=== PATIENT | female | born 1965 | race Caucasian/White ===

== ENCOUNTER 2016-06-22 09:02 | Observation (INO) | payer BC ==
[~2016-06-22] VITALS: Ht 154.9 cm; Wt 56.7 kg
[2016-06-22] VITALS (13 sets, daily range): BP systolic 105–122; BP diastolic 57–68
[~2016-06-22 09:02] MED LIST: ASCO500T2 PO; DULO60CA6 PO; FERR325T72 PO; IV NORMAL SALINE 1000ML BAG 1,000 ML IV SCH; MULT-246 PO; NAPR500T8 PO; [UNRECOGNIZED DRUG - OTHER] IM
[2016-06-22] MEDS ORDERED: SCOPOLAMINE 1.5MG PATCH. TD ONE (09:15)
[2016-06-22] MEDS ORDERED: DEXAMETHASONE SOD PHOS 20 MG/5 ML VIAL. IV ONE (09:30)
[2016-06-22] MEDS ORDERED: DIPHENHYDRAMINE 50 MG/ML VIAL IVP ONE (09:30)
[2016-06-22] MEDS ORDERED: HYDROMORPHONE 2 MG/ML VIAL. IV ONE ×2 (09:30→12:30)
[2016-06-22 09:40] LABS: HEMATOCRIT 28.9 % (36.0-47.0); HEMOGLOBIN 9.2 g/dL (12.0-15.5); RED BLOOD COUNT 4.24 x10^6/uL (3.50-5.40); RED CELL DISTRIBUTION WIDTH 15.9 % (11.5-14.5); WHITE BLOOD COUNT 6.3 x10^3/uL (4.0-11.0)
[2016-06-22 09:50] LABS: CREATININE 0.6 mg/dL (0.6-1.0); GFR 106.7
[2016-06-22 09:52] LABS: NEG OBC SER NEG; POS OBC SER POS
[2016-06-22 09:58] LABS: INR 1.2 (0.8-1.1); PROTHROMBIN TIME PATIENT 14.1 SEC (11.7-14.0)
[2016-06-22] MEDS ORDERED: LIDOCAINE 1% / SOD BICARB 8.4% 20 ML VIAL. IJ ONE ×2 (10:20→12:00)
[2016-06-22] MEDS ORDERED: IODIXANOL 320 MG/ML 100 ML VIAL. ONE (10:20)
[2016-06-22] MEDS ORDERED: IODIXANOL 320MG/ML 50ML VIAL. ONE (10:28)
[2016-06-22] MEDS ORDERED: KETOROLAC TROMETHAMINE 60 MG/2 ML SYRINGE. ONE (10:36)
[2016-06-22] MEDS ORDERED: CEFAZOLIN 1GM IVPB FOR OMNI 50 ML IV ONE (10:41)
[2016-06-22] MEDS ORDERED: MIDAZOLAM HCL/PF 5 MG/5 ML VIAL ONE (10:42)
[2016-06-22] MEDS: KETOROLAC TROMETHAMINE 30 MG/ML SYRINGE. IV PRN ×2 (11:46→11:52)
[2016-06-22] MEDS: CEFAZOLIN SODIUM 1 GM in IV NORMAL SALINE 50ML 50 ML IV PRN ×2 (11:46→11:53)
[2016-06-22] MEDS: ONDANSETRON PF 4 MG/2 ML VIAL. IV PRN ×2 (11:47→11:53)
[2016-06-22] MEDS ORDERED: IODIXANOL 320 MG/ML 100 ML VIAL. IART ONE (12:00)
[2016-06-22] MEDS ORDERED: CONTRAST GIVEN MC PRN (12:00)
[2016-06-22] MEDS ORDERED: NITROGLYCERIN 200 MCG/2 ML SYRINGE FOR CATH/VASC LAB. IART ONE (12:00)
[2016-06-22] MEDS ORDERED: MIDAZOLAM HCL/PF 5 MG/5 ML VIAL IV ONE (12:00)
[2016-06-22] MEDS ORDERED: HYDROMORPHONE STANDARD PCA 30 ML IV PRN (12:15)
--- NOTE | 2016-06-22 12:54 | PDOC ---
MODERATE SEDATION ASSESSMENT RISKS/ALTERNATIVES Risks/Alternatives Risks and alternatives of this type of sedation and procedure discussed with: RISK/ALTERNATIVES: Patient H & P ON CHART H & P H & P on chart and reviewed for co-morbid conditions and appropriate labs. H&P ON CHART: Yes STATUS PREG STATUS ASSESSED: Yes MEDS/ALLERGIES REVIEWED Meds/Allergies Reviewed Medications and Allergies including time and route of recently administered narcotics and sedatives. MEDS/ALLERGIES REVIEWED: Yes ASA RATING ASA RATING: II AIRWAY ASSESSMENT Airway Assessment Airway patency, oral function limitations, presence of caps, crowns, dentures, partials, and ability to extend neck assessed. AIRWAY ASSESSMENT: Yes MALLAMPATI SCORE MALLAMPATI SCORE: II PRE-SEDATION ASSESSMENT PRE-SEDATION ASSESSMENT: Yes YANIV TALBERT MD Jun 22, 2016 12:54
--- NOTE | 2016-06-22 12:59 | PDOC1 ---
History and Physical Date of Procedure Date of Admission Jun 22, 2016 at 10:37 History of Present Illness Reason for Visit 50 yo with hx of transfusion dependent anemia, menorrhagia, and adenomyosis here to undergo bilateral uterine artery embolization. PCP is Dr. Monet. Past Medical History Past Medical History see nursing assessment Past Surgical History Past Surgical History see nursing assessment Current Medications Current Medications Current Medications Sodium Chloride 1,000 ml @ 100 mls/hr Q10H IV ; Start 06/22/16 at 09:02 Cefazolin Sodium/ Sodium Chloride (Ancef/Iv Sodium Chloride 0.9% 50ml) 50 ml @ 100 mls/hr OC PROC PRN IV GIVE PRE-PROCEDURE Last administered on 06/22/16 11: 53; Start 06/22/16 at 09:15; Stop 06/23/16 at 09:14 Ketorolac Tromethamine (Toradol) 30 mg OC PROC PRN IV PRIOR TO PROCEDURE Last administered on 06/22/16 11:52; Start 06/22/16 at 09:15; Stop 06/23/16 at 09:14 Ondansetron HCl (Zofran) 8 mg OC PROC PRN IV PRIOR TO PROCEDURE Last administered on 06/22/16 11:53; Start 06/22/16 at 09:15; Stop 06/23/16 at 09:14 Scopolamine (Transderm-Scop) 1 patch 1X ONCE TD Last administered on 09:15; Start 06/22/16 at 09:15; Stop 06/22/16 at 09:16; Status DC Dexamethasone Sodium Phosphate (Decadron) 10 mg 1X ONCE IV Last administered on 06/22/16 09:30; Start 06/22/16 at 09:30; Stop 06/22/16 at 09:32; Status DC Diphenhydramine HCl (Benadryl) 50 mg 1X ONCE IVP Last administered on 09:30; Start 06/22/16 at 09:30; Stop 06/22/16 at 09:32; Status DC Hydromorphone HCl (Dilaudid) 1 mg 1X ONCE IV Last administered on 06/22/16 09 :30; Start 06/22/16 at 09:30; Stop 06/22/16 at 09:32; Status DC Lidocaine/Sodium Bicarbonate 20 ml 20 ml STK-MED ONCE IJ ; Start 06/22/16 at 10: 20; Stop 06/22/16 at 10:21; Status DC Heparin Sodium/ Sodium Chloride 1,000 ml @ As Directed STK-MED ONCE .ROUTE ; Start 06/22/16 at 10:20; Stop 06/22/16 at 10:21; Status DC Iodixanol (Visipaque 320) 100 ml STK-MED ONCE .ROUTE ; Start 06/22/16 at 10:20; Stop 06/22/16 at 10:21; Status DC Iodixanol (Visipaque 320) 50 ml STK-MED ONCE .ROUTE ; Start 06/22/16 at 10:28; Stop 06/22/16 at 10:29; Status DC Ketorolac Tromethamine 60 mg 60 mg STK-MED ONCE .ROUTE ; Start 06/22/16 at 10:36 ; Stop 06/22/16 at 10:37; Status DC Cefazolin Sodium (Ancef 1gm Ivpb For Omni) 50 ml @ As Directed STK-MED ONCE IV ; Start 06/22/16 at 10:41; Stop 06/22/16 at 10:42; Status DC Midazolam HCl (Versed) 5 mg STK-MED ONCE .ROUTE ; Start 06/22/16 at 10:42; Stop 06/22/16 at 10:43; Status DC Nitroglycerin (Nitroglycerin) 200 mcg 1X ONCE IART ; Start 06/22/16 at 12:00; Stop 06/22/16 at 12:01; Status DC Heparin Sodium/ Sodium Chloride 1,000 unit 1X ONCE IART ; Start 06/22/16 at 12: 00; Stop 06/22/16 at 12:01; Status DC Lidocaine/Sodium Bicarbonate (Buffered Lidocaine 1%) 20 ml 1X ONCE IJ ; Start 06/22/16 at 12:00; Stop 06/22/16 at 12:01; Status DC Midazolam HCl (Versed) 5 mg 1X ONCE IV ; Start 06/22/16 at 12:00; Stop at 12:01; Status DC Iodixanol (Visipaque 320) 100 ml 1X ONCE IART ; Start 06/22/16 at 12:00; Stop 06/22/16 at 12:01; Status DC Info 1 each 1 each PRN DAILY PRN MC SEE COMMENTS; Start 06/22/16 at 12:00; Stop 06/24/16 at 11:59 Hydromorphone HCl (Dilaudid Standard CERTIFIED DIABETES EDUCATOR) 30 ml @ 0 mls/hr CONT PRN PRN IV PROTOCOL; Start 06/22/16 at 12:15 Hydromorphone HCl (Dilaudid) 2 mg 1X ONCE IV ; Start 06/22/16 at 12:30; Stop at 12:31; Status DC Active Scripts Active Reported Cymbalta (Duloxetine Hcl) 60 Mg Capsule.dr 1 Cap PO DAILY Allergies Allergies: Uncoded Allergies: Bee sting (Allergy, Severe, 02/27/16) Physical Exam Vital Signs Vital Signs Date Time Temp Pulse Resp B/P Pulse Ox O2 Delivery O2 Flow Rate FiO2 06/22/16 10:22 98.4 61 20 97 Room Air 98.4 06/22/16 09:30 2.0 Other see nursing assessment Assessment Assessment Adenomyosis and tranfusion dependent anemia Problems: Plan Plan Bilateral uterine artery embolization YANIV TALBERT MD Jun 22, 2016 12:59
--- NOTE | 2016-06-22 13:00 | PDOC ---
BRIEF OPERATIVE NOTE Pre-Op Diagnosis Adenomyosis and anemia Post-Op Diagnosis same Procedure Performed Bilateral Uterine Artery Embolization Surgeon Susana Anesthesia Type: Conscious Sedation Findings bilateral uterine artery embolizated to near stasis bilaterally Complications No immediate YANIV TALBERT MD Jun 22, 2016 13:00
[2016-06-22] MEDS ORDERED: ONDANSETRON PF 4 MG/2 ML VIAL. IV PRN ×2 (13:30→14:45)
[2016-06-22] MEDS ORDERED: DOCUSATE SODIUM 100 MG CAPSULE PO PRN (13:45)
--- NOTE | 2016-06-22 14:25 | PDOC1 ---
History and Physical Identification/Chief Complaint Chief Complaint anemia Problems: Source Source: Chart review, Patient History of Present Illness History of Present Illness A 50 yo with hx of transfusion dependent anemia, menorrhagia, and adenomyosis admitted for bilateral uterine artery embolization by Dr Meza, she was admitted to the hospital for pain control. 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 She was also c/o nausea, family at bedside, denies any bleeding or any to other complaints. Past Medical History Past Medical History PAST MEDICAL HISTORY: Anemia, IBS, fibromyalgia, arthritis. PAST SURGICAL HISTORY: Had a bunionectomy as well as patient had tubal ligation, reversal, had an ectopic , had a right salpingo-oophorectomy. ALLERGIES: BEE STINGS ,swelling some problems. PERSONAL HISTORY: No history of smoking, alcohol or drug abuse. MEDICATIONS AT HOME: Cymbalta 60 mg daily, naproxen twice a day. FAMILY HISTORY: Grandma has some anemia, but is told not hereditary. Cardiovascular: No pertinent hx Pulmonary: No pertinent hx GI: No pertinent hx Heme/Onc: Iron deficiency Anemia Psych: No pertinent hx Rheumatologic: No pertinent hx Infectious disease: No pertinent hx Renal/: No pertinent hx Past Surgical History Past Surgical History: Tubal Ligation, Other Social History Smoke: No ALCOHOL: none Drugs: None Current Medications Current Medications Current Medications Medications (Trade) Dose Ordered Sig/Vish Start Time Stop Time Status Last Admin Dose Admin Acetaminophen/ Hydrocodone Bitart (Lortab 5/325) 1 tab PRN Q4HRS PRN 06/22/16 13:45 Cefazolin Sodium (Ancef 1gm Ivpb For Omni) 50 ml @ As Directed STK-MED ONCE 06/22/16 10:41 06/22/16 10:42 DC Cefazolin Sodium/ Sodium Chloride (Ancef/Iv Sodium Chloride 0.9% 50ml) 50 ml @ 100 mls/hr OC PROC PRN 06/22/16 09:15 06/23/16 09:14 06/22/16 11:53 100 MLS/HR Dexamethasone Sodium Phosphate (Decadron) 10 mg 1X ONCE 06/22/16 09:30 06/22/16 09:32 DC 06/22/16 09:30 10 MG Diphenhydramine HCl (Benadryl) 50 mg 1X ONCE 06/22/16 09:30 06/22/16 09:32 DC 06/22/16 09:30 50 MG Docusate Sodium (Colace) 100 mg PRN DAILY PRN 06/22/16 13:45 Heparin Sodium/ Sodium Chloride 1,000 unit 1X ONCE 06/22/16 12:00 06/22/16 12:01 DC 06/22/16 12:59 1,000 UNIT Hydromorphone HCl (Dilaudid Standard 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) 30 ml @ 0 mls/hr CONT PRN PRN 06/22/16 12:15 06/22/16 13:34 0 MLS/HR Hydromorphone HCl (Dilaudid) 2 mg 1X ONCE 06/22/16 12:30 06/22/16 12:31 DC 06/22/16 12:58 0.5 MG Info 1 each 1 each PRN DAILY PRN 06/22/16 12:00 06/24/16 11:59 Iodixanol (Visipaque 320) 100 ml 1X ONCE 06/22/16 12:00 06/22/16 12:01 DC 06/22/16 12:58 47 ML Ketorolac Tromethamine (Toradol) 10 mg Q6HRS 06/22/16 18:00 06/23/16 06:00 Ketorolac Tromethamine 60 mg 60 mg STK-MED ONCE 06/22/16 10:36 06/22/16 10:37 DC Lidocaine/Sodium Bicarbonate (Buffered Lidocaine 1%) 20 ml 1X ONCE 06/22/16 12:00 06/22/16 12:01 DC 06/22/16 13:00 10 ML Midazolam HCl (Versed) 5 mg 1X ONCE 06/22/16 12:00 06/22/16 12:01 DC 06/22/16 12:59 2 MG Nitroglycerin (Nitroglycerin) 200 mcg 1X ONCE 06/22/16 12:00 06/22/16 12:01 DC 06/22/16 12:59 300 MCG Ondansetron HCl (Zofran) 4 mg PRN Q6HRS PRN 06/22/16 13:30 Scopolamine (Transderm-Scop) 1 patch 1X ONCE 06/22/16 09:15 06/22/16 09:16 DC 06/22/16 09:15 1 PATCH Sodium Chloride 1,000 ml @ 100 mls/hr Q10H 06/22/16 09:02 Allergies Allergies Allergies Uncoded Allergies Type Severity Reaction Last Updated Verified Bee sting Allergy Severe 02/27/16 ROS Review of System CONSTITUTIONAL: No fever or chills EYES: No recent changes SKIN: No rash or itching CARDIOVASCULAR: No chest pain, syncope, palpitations, or edema RESPIRATORY: No SOB or cough GASTROINTESTINAL: abdominal pain NEUROLOGICAL: No headaches or weakness ENDOCRINE: No cold or heat intolerance GENITOURINARY: No urgency or frequency of urination MUSCULOSKELETAL: No back pain or joint pain LYMPHATICS: No enlarged lymph nodes PSYCHIATRIC: No anxiety or depression Physical Exam Physical Exam GEN.: apparent distress. Alert and oriented. HEENT: Head is normocephalic, atraumatic NECK: Supple. no jvd LUNGS: Clear to auscultation. normal airflow HEART: RRR, S1, S2 present. Peripheral pulses intact ABDOMEN: Soft, nontender. Positive bowel sounds. EXTREMITIES: Without any cyanosis. NEUROLOGIC: Normal speech, normal tone PSYCHIATRIC: Normal affect, normal mood. SKIN: No visible skin lesions. Vitals Vitals Vital Signs Date Time Temp Pulse Resp B/P Pulse Ox O2 Delivery O2 Flow Rate FiO2 06/22/16 13:34 20 Room Air 06/22/16 13:01 58 100 2.0 06/22/16 10:22 98.4 98.4 Labs Labs Laboratory Tests Test 06/22/16 09:30 White Blood Count 6.3x10^3/uL (4.0-11.0) Red Blood Count 4.24x10^6/uL (3.50-5.40) Hemoglobin 9.2g/dL (12.0-15.5) Hematocrit 28.9% (36.0-47.0) Mean Corpuscular Volume 68fL (79-100) Mean Corpuscular Hemoglobin 22pg (25-35) Mean Corpuscular Hemoglobin Concent 32g/dL (31-37) Red Cell Distribution Width 15.9% (11.5-14.5) Platelet Count 327x10^3/uL (140-400) Prothrombin Time 14.1SEC (11.7-14.0) Prothromb Time International Ratio 1.2 (0.8-1.1) Blood Urea Nitrogen 12mg/dL (7-20) Creatinine 0.6mg/dL (0.6-1.0) Estimated GFR (Cockcroft-Gault) 106.7 Serum Test, Qualitative Negative (NEG) Laboratory Tests Test 06/22/16 09:30 White Blood Count 6.3x10^3/uL (4.0-11.0) Red Blood Count 4.24x10^6/uL (3.50-5.40) Hemoglobin 9.2g/dL (12.0-15.5) Hematocrit 28.9% (36.0-47.0) Mean Corpuscular Volume 68fL (79-100) Mean Corpuscular Hemoglobin 22pg (25-35) Mean Corpuscular Hemoglobin Concent 32g/dL (31-37) Red Cell Distribution Width 15.9% (11.5-14.5) Platelet Count 327x10^3/uL (140-400) Prothrombin Time 14.1SEC (11.7-14.0) Prothromb Time International Ratio 1.2 (0.8-1.1) Blood Urea Nitrogen 12mg/dL (7-20) Creatinine 0.6mg/dL (0.6-1.0) Estimated GFR (Cockcroft-Gault) 106.7 Serum Test, Qualitative Negative (NEG) VTE Prophylaxis Ordered VTE Prophylaxis Devices: No VTE Pharmacological Prophylaxi: No Assessment/Plan Assessment/Plan Transfusion dependent anemia, menorrhagia, and adenomyosis S/P bilateral uterine artery embolization ON Severe pain due to above 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 if pain is controlled, anticipated DC in AM SLICK DUMONT MD Jun 22, 2016 14:25
[2016-06-22] MEDS ORDERED: ACETAMINOPHEN 325 MG TABLET. PO PRN (14:45)
[2016-06-22] MEDS ORDERED: ALBUTEROL SULFATE 2.5 MG/3 ML NEBU. NEB PRN (14:45)
[2016-06-22] MEDS ORDERED: hydrALAZINE 20 MG/ML VIAL. IVP PRN (14:45)
[2016-06-22] MEDS: CYCLOBENZAPRINE 10 MG TABLET. PO PRN ×2 (15:03→21:06)
[2016-06-22] MEDS: KETOROLAC 15 MG/ML VIAL. IV SCH (18:30)
[2016-06-23 04:10] LABS: BASO % 0 % (0-3); EOS % 0 % (0-3); HEMATOCRIT 26.3 % (36.0-47.0); HEMOGLOBIN 7.9 g/dL (12.0-15.5); LYMPH # 0.7 x10^3/uL (1.0-4.8); LYMPH % 6 % (24-48); MEAN CORPUSCULAR HEMOGLOBIN 21 pg (25-35); MEAN CORPUSCULAR HGB CONC 30 g/dL (31-37); MEAN CORPUSCULAR VOLUME 71 fL (79-100); MONO % 5 % (0-9); NEUT % 90 % (31-73); PLATELET COUNT 328 x10^3/uL (140-400); RED BLOOD COUNT 3.73 x10^6/uL (3.50-5.40); RED CELL DISTRIBUTION WIDTH 16.3 % (11.5-14.5); WHITE BLOOD COUNT 13.2 x10^3/uL (4.0-11.0)
[2016-06-23 04:33] LABS: CALCIUM 8.6 mg/dL (8.5-10.1); CREATININE 0.7 mg/dL (0.6-1.0); GFR 89.3; POTASSIUM 4.4 mmol/L (3.5-5.1)
[2016-06-23 05:13] LABS: HYPOCHROMIA MOD; MICROCYTOSIS MOD; PLT ESTIMATE ADEQUATE (ADEQUATE)
[2016-06-23] MEDS: CYCLOBENZAPRINE 10 MG TABLET. PO PRN (05:14)
[2016-06-23 06:06] VITALS: BP 108/64
[2016-06-23] MEDS: HYDROCODONE/APAP 5/325MG TABLET. PO PRN ×2 (07:53→14:10)
[2016-06-23 07:55] VITALS: BP 103/57
[2016-06-23] MEDS: KETOROLAC 15 MG/ML VIAL. IV SCH (10:01)
[2016-06-23] MEDS ORDERED: HYDR-2666 PO ×2 (13:53→13:54)
--- NOTE | 2016-06-23 14:02 | PDOC3 ---
Discharge Summary [facility] Date of Admission: Jun 22, 2016 Discharge Date: Jun 23, 2016 Admitting Diagnosis Transfusion dependent anemia, menorrhagia, and adenomyosis S/P bilateral uterine artery embolization ON 06/22/16 Severe pain due to above Problems: Final Diagnosis Problems Medical Problems: (1) Fibroid uterus Status: Acute CONSULTS IR Brief Hospital Course Ms. Jose is a 50 old f, WITH chronic anemia with menorrhagia, adenomyosis, she got bilateral uterine artery embolizated to near stasis bilaterally by IF on 06/22/16 she was admitted with BLOW [facility]OLDER for pain control. pain is better ,still 6/10 dc home with lortab fu with pcp repeat cbc in 2 weeks, fu with IR in3 months. dc time 35min GEN.: apparent distress. Alert and oriented. HEENT: Head is normocephalic, atraumatic NECK: Supple. no jvd LUNGS: Clear to auscultation. normal airflow HEART: RRR, S1, S2 present. Peripheral pulses intact ABDOMEN: Soft, Positive bowel sounds. lower abd tenderness EXTREMITIES: Without any cyanosis. NEUROLOGIC: Normal speech, normal tone PSYCHIATRIC: Normal affect, normal mood. SKIN: No visible skin lesions. Problems: Disposition home CONDITION AT DISCHARGE: Improved Diet regular Scheduled Duloxetine Hcl (Cymbalta) 1 CAP PO DAILY (Reported) Scheduled PRN Hydrocodone Bit/Acetaminophen (Hydrocodone-Apap 5-325 ) 1-2 TAB PO PRN Q4HRS PRN PRN PAIN Follow Up RENU LANDAVERDE MD Jun 23, 2016 14:01
--- NOTE | 2016-06-24 09:34 | RAD ---
Procedure: Right upper extremity PICC line placement with ultrasound and fluoroscopic guidance. Pelvic arteriogram and bilateral uterine artery angiography and embolization with ultrasound guidance for vascular access. Clinical Indication: 50-year-old female with menorrhagia, refractory anemia, and adenomyosis Sedation: Conscious sedation was administered for 98 minutes. The patient was monitored by a qualified independent observer throughout the time of sedation. Please refer to the medical record for exact doses of medications utilized to achieve moderate sedation. Antibiotics: Antibiotic was administered intravenously within 1 hour of the procedure start time. Exposure: Kerma-Area Product: 342 Gycm2 Contrast: 47 cc of Visipaque 320 contrast media Sterility: All elements of maximal sterile barrier technique including the use of a cap, mask, sterile gown, sterile gloves, large sterile sheet, appropriate hand hygiene, and 2% chlorhexidine for cutaneous antisepsis (or acceptable alternative antiseptic per current guidelines) were followed for this procedure. Consent: The procedure was explained in its entirety to the patient or the patients designated representative government relations by a member of the treatment team, including a discussion of the risks, benefits and commonly accepted alternatives to the procedure, as well as the expected consequences of no therapy whatsoever. Discussion of the risks included, but was not limited to, those that are most frequent and those that are rare but possibly severe or life-threatening, as well as the possibility of unforeseen complications. Technique and Findings: Following informed consent, the patient was prepped and draped in usual sterile fashion. Ultrasound interrogation of the right arm revealed patency and compressibility of the right basilic vein. A Hardcopy ultrasound image was recorded. As a 21-gauge micropuncture needle was used to gain access to this vein. The needle was exchanged over wire for a 5 Dominican peel-away sheath which was used to deploy a PICC line under fluoroscopic guidance such that the distal tip resided in the cavoatrial junction. Both lumens flushed and aspirated with ease. The catheter was then affixed to the skin. The right groin was then prepped and draped in usual sterile fashion. Ultrasound interrogation revealed patency of the right common femoral artery. Under ultrasound guidance, a 21-gauge micropuncture needle was used to gain access to this vessel. The needle was exchanged over wire for a 5 Dominican sheath. A Cobra catheter was then advanced through the sheath to the contralateral internal iliac artery and contrast angiography was performed. This aerated in identification of the ostium of the uterine artery. A microcatheter was then advanced superselectively into the transverse segment of the left uterine artery and contrast angiography was performed skin. There is a small ovarian branch, with no other extrauterine flow identified in this position. Particulate embolization was then performed using 100-300 um embosphere particles to substasis. This was followed with embolization using 300 of 500 um embospheres, and subsequently 500-700 um embospheres to achieve near stasis. No contrast or particular reflux was identified. Post embolization angiographic demonstrated markedly reduced flow. The microcatheter was then removed. A Lloyd loop was then formed using the existing Cobra catheter, and the catheter was then retracted and used to select the ipsilateral right internal iliac artery. Contrast angiography was performed demonstrating normal arterial flow, and nicely delineated and the ostium of the right uterine artery. The Progreat microcatheter was then advanced coaxially into the transverse segment of the right uterine artery and selective angiography was performed. Once again a small ovarian branch is identified, however no other extrauterine arteries are evident. No early venous drainage is evident. Particulate embolization was then performed in a similar manner as on the left, this time resulting in abrupt stasis during administration of the 500-700 um particles on the right. The microcatheter was then withdrawn and contrast angiography of the internal iliac artery was performed demonstrating focal high-grade spasm of the proximal uterine artery, likely contributing to the appearance of complete stasis. Once again no geo reflux beyond the uterine artery or nontarget particular ambulation was evident. The catheter was then removed and contrast angiography of the right groin was performed to assess for suitability of a closure device. The sheath was then exchanged for a minx closure device which was successfully utilized to obtain hemostasis. Complications: No immediate Impression: 1. Right upper extremity PICC line placement as described. 2. Pelvic angiography and bilateral uterine artery angiography and embolization as described.
== END 2016-06-23 18:00 | disposition home or self-care (01) ==
LOC: INTRAD 09:02 → INTOOBSV 10:37 → 3 NORTH 10:37
PROVIDERS: ADMIT Internal Medicine; ATTEND Internal Medicine
DX: N80.0 Endometriosis of uterus (principal); D64.89 Other specified anemias; N92.0 Excessive and frequent menstruation with regular cycle; D25.9 Leiomyoma of uterus, unspecified; M19.90 Unspecified osteoarthritis, unspecified site; K58.9 Irritable bowel syndrome, unspecified
CPT/HCPCS: 36247; 36415; 36569; 37243; 75736; 76937; 77001; 80048; 82565; 84520; 84703; 85007; 85027; 85610; 94250; 96361; 96365; 96372; 96375; 96376; C1713; C1751; C1760; C1769; C1887; C1892; C1894; G0269; G0378; G0379; J0690; J1100; J1170; J1200; J1885; J2250; J2405; J3490; J7030; Q9967; 36248